=== PATIENT | female | born 2000 | race American Indian/Alaskan Native ===

== ENCOUNTER 2021-03-31 18:15 | Emergency (ER) | payer OTHER ==
[2021-03-31] MEDS ORDERED: dexAMETHasone 20 MG/5 ML VIAL IM ONE (18:54)
--- NOTE | 2021-03-31 19:06 | Emergency Department Report ---
ED ENT HPI - General Chief complaint: Sore Throat Stated complaint: THROAT POSS SWOLLEN Time Seen by Provider: 03/31/21 18:44 Source: patient Mode of arrival: Ambulatory Limitations: No Limitations - History of Present Illness Initial comments: Patient is a 20-year-old female presents emergency room with complaints of feeling like her throat is swollen for 3 days. She states that she has some mild discomfort with swallowing. She states that she has a foreign body sensation. She denies swallowing anything or anything stuck that she is aware of. She is able to tolerate p.o. intake. She denies any fever, vomiting, diarrhea, difficulty breathing, rash, itching, facial swelling. She denies any past medical history. She denies any known allergies. She states her last menstrual cycle was last month. - Related Data Previous Rx's Medication Instructions Recorded Last Taken Type Loratadine 10 mg PO DAILY #10 tablet 03/31/21 Unknown Rx Nystas/Diphen/Xyl Visc/Mylanta 30 ml MM Q4H PRN #300 ml 03/31/21 Unknown Rx [Magic Mouthwash] Allergies Allergy/AdvReac Type Severity Reaction Status Date / Time No Known Allergies Allergy Verified 03/31/21 18:28 ED Dental HPI - General Chief complaint: Sore Throat Stated complaint: THROAT POSS SWOLLEN Time Seen by Provider: 03/31/21 18:44 Source: patient Mode of arrival: Ambulatory Limitations: No Limitations - Related Data Previous Rx's Medication Instructions Recorded Last Taken Type Loratadine 10 mg PO DAILY #10 tablet 03/31/21 Unknown Rx Nystas/Diphen/Xyl Visc/Mylanta 30 ml MM Q4H PRN #300 ml 03/31/21 Unknown Rx [Magic Mouthwash] Allergies Allergy/AdvReac Type Severity Reaction Status Date / Time No Known Allergies Allergy Verified 03/31/21 18:28 ED Review of Systems ROS: Stated complaint: THROAT POSS SWOLLEN Other details as noted in HPI Comment: All other systems reviewed and negative ED Past Medical Hx - Past Medical History Previous Medical History?: No - Surgical History Past Surgical History?: No - Medications Home Medications: Home Medications Medication Instructions Recorded Confirmed Last Taken Type Loratadine 10 mg PO DAILY #10 tablet 03/31/21 Unknown Rx Nystas/Diphen/Xyl Visc/Mylanta 30 ml MM Q4H PRN #300 ml 03/31/21 Unknown Rx [Magic Mouthwash] ED Physical Exam - General Limitations: No Limitations General appearance: alert, in no apparent distress - Head Head exam: Present: atraumatic, normocephalic - Eye Eye exam: Present: normal appearance - ENT ENT exam: Present: normal orophraynx, mucous membranes moist, other (no tonsillar hypertrophy or exudates, uvula is midline, no uvular edema or deviation, no trismus, no tongue elevation, no muffled voice, no submandibular edema, no angioedema) - Neck Neck exam: Present: lymphadenopathy (small left cervical LAD ) - Respiratory Respiratory exam: Present: normal lung sounds bilaterally. Absent: respiratory distress, wheezes, rales, rhonchi, stridor, chest wall tenderness, accessory muscle use, decreased breath sounds, prolonged expiratory - Cardiovascular Cardiovascular Exam: Present: regular rate, normal rhythm, normal heart sounds. Absent: systolic murmur, diastolic murmur, rubs, gallop - Neurological Exam Neurological exam: Present: alert, oriented X3 - Psychiatric Psychiatric exam: Present: normal affect, normal mood - Skin Skin exam: Present: warm, dry, intact. Absent: rash ED Course Vital Signs 03/31/21 18:31 Pulse Rate 65 Respiratory 16 Rate Blood Pressure 154/90 [Left] O2 Sat by Pulse 100 Oximetry ED Medical Decision Making - Radiology Data Radiology results: report reviewed Ordering Physician: CANDELARIA SANZ Date of Service: 03/31/21 Procedure(s): CT neck wo con Accession Number(s): [id number] cc: CANDELARIA SANZ CT NECK WITH INTRAVENOUS CONTRAST AND MULTIPLANAR RECONSTRUCTION CLINICAL HISTORY: sensation of throat swelling and foreign body TECHNIQUE: 2.5 mm thick contiguous axial scans were obtained from the skull base down to the aortic arch was inadvertently excluded. In addition to evaluation of axial source images sagittal and coronal multiplanar reconstructions were produced and reviewed for this report. All CT imaging studies performed at this facility utilize dose modulation, iterative reconstruction or weight based dosing, if appropriate, to obtain the lowest achievable radiation dose. FINDINGS: AIRWAY: No abnormalities are seen along the course of the airway. Nasopharynx, oropharynx, hypopharynx, larynx and visualized portions of the subglottic airway all have an unremarkable appearance. LYMPH NODES: There is no indication of cervical lymphadenopathy. Evaluation for lymph nodes is limited due to the paucity of fat in the fascial planes of the neck in this thin individual. ORAL CAVITY/FLOOR OF MOUTH: No abnormalities are seen in evaluation of the oral cavity and tongue. The floor the mouth has a normal appearance. No large untreated dental caries are identified. There is no indication of periapical abscess. MAJOR SALIVARY GLANDS: The parotid and submandibular salivary glands have a normal appearance. NASAL CAVITY AND PARANASAL SINUSES: Evaluation of the nasal cavity reveals no abnormality. The paranasal sinuses are free from inflammatory mucosal disease. ORBITS:No abnormalities of the visualized portions of the orbits are identified. Globes, optic nerves, extraocular muscles and lacrimal glands have an unremarkable appearance. THYROID GLAND: The thyroid gland is normal in size and homogeneous in attenuation. No focal thyroid lesions are identified. TEMPORAL BONES:Mastoid air cells are normally pneumatized. CERVICAL SPINE: Evaluation of the cervical spine reveals no significant abnormality. Normal alignment is maintained. No significant degenerative changes are identified. LUNG APICES: Evaluation of the lung apices reveals no abnormality. There is no indication of lung nodule or infiltrate. The visualized portions of the superior mediastinum have an unremarkable appearance. IMPRESSION: 1. No significant abnormalities are demonstrated on CT neck without intravenous contrast. Signer Name: Marino Guerrero MD Signed: 03/31/2021 8:00 PM Workstation Name: [id number] Transcribed By: Dictated By: Marino Guerrero MD Electronically Authenticated By: Marino Guerrero MD Signed Date/Time: 03/31/211999 DD/ 54 TD/TT: - Medical Decision Making Patient is a 20-year-old female presents emergency room with complaints of feeling like her throat is swollen for 3 days. She states that she has some mild discomfort with swallowing. She states that she has a foreign body sensation. She denies swallowing anything or anything stuck that she is aware of. She is able to tolerate p.o. intake. She denies any fever, vomiting, diarrhea, difficulty breathing, rash, itching, facial swelling. She denies any past medical history. She denies any known allergies. She states her last menstrual cycle was last month. vss. On exam:no tonsillar hypertrophy or exu dates, uvula is midline, no uvular edema or deviation, no trismus, no tongue elevation, no muffled voice, no submandibular edema, no angioedema, small left cervical LAD, no stridor. Rapid strep is negative. CT neck without contrast 1. No significant abnormalities are demonstrated on CT neck without intravenous contrast. Patient given prescription for medication for symptomatic relief. Discussed supportive care with patient. Discussed the importance of outpatient primary care and ENT follow-up. Advised patient please take medication as prescribed. Increase your fluid intake. Gargle with warm salt water. May take Tylenol or ibuprofen as needed for pain. Follow-up with your primary care doctor. Follow-up with nuclear security officer. Return to emergency room for any new or worsening symptoms. Critical care attestation.: If time is entered above; I have spent that time in minutes in the direct care of this critically ill patient, excluding procedure time. ED Disposition Clinical Impression: Throat discomfort, Sensation of foreign body Disposition: 01 HOME / SELF CARE / HOMELESS Is pt being admited?: No Does the pt Need Aspirin: No Condition: Stable Instructions: Sore Throat Additional Instructions: please take medication as prescribed. Increase your fluid intake. Gargle with warm salt water. May take Tylenol or ibuprofen as needed for pain. Follow-up wi th your primary care doctor. Follow-up with nuclear security officer. Return to emergency room for any new or worsening symptoms. Prescriptions: Loratadine 10 mg PO DAILY #10 tablet Nystas/Diphen/Xyl Visc/Mylanta [Magic Mouthwash] 30 ml MM Q4H PRN #300 ml PRN Reason: sore throat Referrals: SHIRA MARADIAGA MD [Staff Physician] - 3-5 Days NICOLÁS GALICIA MD [Referring] - 3-5 Days your, primary care doctor [Other] - 3-5 Days Time of Disposition: 20:08 Print Language: AZERI
--- NOTE | 2021-03-31 20:04 | Cat Scan Report ---
CT NECK WITH INTRAVENOUS CONTRAST AND MULTIPLANAR RECONSTRUCTION CLINICAL HISTORY: sensation of throat swelling and foreign body TECHNIQUE: 2.5 mm thick contiguous axial scans were obtained from the skull base down to the aortic arch was damon dvertently excluded. In addition to evaluation of axial source images sagittal and coronal multiplana r reconstructions were produced and reviewed for this report. All CT imaging studies performed at this facility utilize dose modulation, iterative reconstruction o r weight based dosing, if appropriate, to obtain the lowest achievable radiation dose. FINDINGS: AIRWAY: No abnormalities are seen along the course of the airway. Nasopharynx, oropharynx, hypopharyn x, larynx and visualized portions of the subglottic airway all have an unremarkable appearance. LYMPH NODES: There is no indication of cervical lymphadenopathy. Evaluation for lymph nodes is limite d due to the paucity of fat in the fascial planes of the neck in this thin individual. ORAL CAVITY/FLOOR OF MOUTH: No abnormalities are seen in evaluation of the oral cavity and tongue. Th e floor the mouth has a normal appearance. No large untreated dental caries are identified. There is no indication of periapical abscess. MAJOR SALIVARY GLANDS: The parotid and submandibular salivary glands have a normal appearance. NASAL CAVITY AND PARANASAL SINUSES: Evaluation of the nasal cavity reveals no abnormality. The parana leah sinuses are free from inflammatory mucosal disease. ORBITS:No abnormalities of the visualized portions of the orbits are identified. Globes, optic nerves , extraocular muscles and lacrimal glands have an unremarkable appearance. THYROID GLAND: The thyroid gland is normal in size and homogeneous in attenuation. No focal thyroid l esions are identified. TEMPORAL BONES:Mastoid air cells are normally pneumatized. CERVICAL SPINE: Evaluation of the cervical spine reveals no significant abnormality. Normal alignment is maintained. No significant degenerative changes are identified. LUNG APICES: Evaluation of the lung apices reveals no abnormality. There is no indication of lung nod ule or infiltrate. The visualized portions of the superior mediastinum have an unremarkable appearanc e. IMPRESSION: 1. No significant abnormalities are demonstrated on CT neck without intravenous contrast. Signer Name: Marino Guerrero MD Signed: 03/31/2021 8:00 PM Workstation Name: [id number]
[2021-03-31 21:06] VITALS: BP 131/84
== END 2021-03-31 21:06 | disposition home or self-care (01) ==
LOC: ED 18:15
DX: R09.89 Other specified symptoms and signs involving the circulatory and respiratory systems (principal); R07.0 Pain in throat
CPT/HCPCS: 70490; 87116; 87430; 96372; 99284; J1100